=== PATIENT | male | born 1955 | race Caucasian/White ===

== ENCOUNTER → 2021-02-22 08:48 | Outpatient (REF) | payer BC, SELFPAY | LOC: ANHLAB 08:48 | PROVIDERS: PCP Family Medicine; Visit Provider Nurse Practitioner | DX: D23.39 Other benign neoplasm of skin of other parts of face (principal) | CPT/HCPCS: 88304; 88305 ==

== ENCOUNTER 2021-07-25 11:10 | Outpatient (CLI) | payer MEDICARE, SELFPAY ==
--- NOTE | ~2021-07-25 | US_ITS ---
US venous doppler [facility] DATE: 07/25/2021 12:07 INDICATION: Left lower extremity calf pain TECHNIQUE: Real-time and color flow imaging and Doppler analysis of the veins of the lower extremitie s COMPARISON: None FINDINGS: The greater saphenous veins are patent. There is spontaneous and phasic flow and normal aug mentation and color flow signal and normal compression of the deep veins of both lower extremities. There is mild fluid in the medial left calf. Differential diagnosis includes edema, hematoma, Stevenson's cyst or ruptured Stevenson's cyst IMPRESSION: No evidence of deep venous thrombosis of either lower extremity Fluid in the medial left calf; diffusion diagnosis includes edema, hematoma, Stevenson's cyst or ruptured Stevenson's cyst Reviewed, dictated and finalized at Location A. Reviewed, dictated and finalized at location B. IMPRESSION: No evidence of deep venous thrombosis of either lower extremity Fluid in the medial left calf; diffusion diagnosis includes edema, hematoma, Ba ker's cyst or ruptured Stevenson's cyst
== END 2021-07-25 11:11 | disposition home or self-care (01) ==
PROVIDERS: PCP Family Medicine; Visit Provider Physician Assistant Medical
DX: M79.605 Pain in left leg (principal); M79.89 Other specified soft tissue disorders
CPT/HCPCS: 93970

== ENCOUNTER 2022-08-08 13:39 | Outpatient (CLI) | payer MEDICARE, SELFPAY ==
--- NOTE | ~2022-08-08 | XR_ITS ---
XR sacrum coccyx min 2V 08/08/2022 14:14 Indication: Radiculopathy. Procedure: 3 views of the sacroiliac joints Comparison: No prior studies for comparison. Findings: There is disc narrowing at L3-4, L4-5 and L5-S1. There is advanced facet hypertrophy at the se levels. Sacroiliac joints are unremarkable bilaterally without significant degenerative change, er osion or ankylosis. There is mild osteoarthritis of the hips. No acute fracture or traumatic malalign ment. Impression: 1: No significant abnormality of the sacroiliac joints. Reviewed, dictated and finalized at location D. Impression: 1: No significant abnormality of the sacroiliac joints.
--- NOTE | ~2022-08-08 | XR_ITS ---
Lumbosacral Spine: AP and lateral views Clinical History: Pain Findings: The normal lordotic curve is maintained. No fracture identified. 5 mm retrolisthesis of L2 over L3 present, with severe degenerative disc narrowing at this level. There are mild degenerative d isc change at the remaining lumbar levels. There is moderate facet arthropathy throughout the lumbar spine. The sacroiliac joints are normally outlined. Impression: 5 mm retrolisthesis of L2 over L3, with severe degenerative disc narrowing at this level. Mild degenerative spondylosis in the remainder of the lumbar spine otherwise. Reviewed, dictated and finalized at location . Impression: 5 mm retrolisthesis of L2 over L3, with severe degenerative disc narrowing at t his level. Mild degenerative spondylosis in the remainder of the lumbar spine otherwise.
== END 2022-08-08 13:40 ==
PROVIDERS: PCP Family Medicine; Visit Provider Physician Assistant Medical
DX: M51.16 Intervertebral disc disorders with radiculopathy, lumbar region (principal); M47.26 Other spondylosis with radiculopathy, lumbar region
CPT/HCPCS: 72100; 72220

== ENCOUNTER 2024-08-05 14:04 | Outpatient (CLI) | payer OTHER, SELFPAY ==
--- OUTSIDE RECORDS SUMMARY | 2024-08-05 14:17 | XMS_ITS | Encounter Summary ---
Author Organization [facility] Address [address] [place], [place] [address] [address] Care Team Providers Care Bogger Operator Name Role Phone Jacques Monae MD Primary Care Provider [phone] Reason for Visit * Reason Onset Date Comments MEDICATION REFILL 03/22/2021 Encounter Details Date Type Department Care Team (Late st Contact Info) Description 03/22/2021 Refill [facility]ology, Diabetes and Metabolism [address] [place] [address], [facility] [place] [id number] Vasiliy Hidalgo MD [address] [place] [address] [place] [address] MEDICATION REFILL Social History Tobacco Use Types Packs/Day Years Used Date Smoking Tobacco: Never Smokeless Tobacco: Never Alcohol Use Standard Drinks/Week Comments No 0 (1 standard drink = 0.6 oz pur e alcohol) Sex and Gender Information Value Date Recorded Sex Assigned at Not on file Legal Sex Male 11:50 AM CDT Gender Identity Not on file Sexual Orientation Not on file documented as of this encounter Miscellaneous Notes * Telephone Encounter - Maryjo Hyman LPN - 03/23/2021 8:18 AM CST Refill Request Ye Gray ROSI: 01-24-21Jan due: 6 month NOV scheduled: 07/25/2021 LRF: 07-11-20 Qty Disp: 10 # of refills: 11 Allergies: Allergies Allergen Reactions ??? Penicillins Rash Pended Medication Order: Requested Prescriptions Pending Prescriptions Disp Refills ??? insulin detemir (LEVEMIR) pen Sig: Inject 80 (eighty) Units subcutaneously at bedtime INUOUS IMPROVEMENT FACILITATOR documented in this encounter Plan of Treatment Not on file documented as of this encounter Visit Diagnoses Diagnosis Type 2 diabetes mellitus with hyperglycemia, with long-term current use of insulin (HCC) documented in this encounter Care Teams Bogger Operator Relationship Specialty Start Date End Date Jacques Monae MD [address] [place] [address] PCP - General 11/05/17 documented as of this encounter
--- OUTSIDE RECORDS SUMMARY | 2024-08-05 14:17 | XMS_ITS | Encounter Summary ---
Author Organization [facility] Address [address] [facility] [place] [address] Care Team Providers Care Battery Checker Name Role Phone Jacques Monae MD Primary Care Provider Encounter Details Date Type Department Care Team (Late st Contact Info) Description 02/14/2022 Lab Requisition [facility] [address] [facility] [place] [id number] Jacques Monae MD [address] [place] [address] Social History Tobacco Use Types Packs/Day Years [...] on file documented as of this encounter Plan of Treatment Not on file documented as of this encounter Procedures Procedure Name Priority Date/Time Associated Diagnosis Comments DERMATOPATHOLOGY Routine 02/13/2022 12:0 0 AM FIRE BEHAVIOR ANALYST documented in this encounter Results * DERMATOPATHOLOGY (02/13/2022 12:00 AM FIRE BEHAVIOR ANALYST) Case Report Dermatopathology Report Case: [id number] Authorizing Provider: Jacques Monae MD Collected: 02/13/2022 12:00 AM Ordering Location: [facility] Received: 02/14/2022 12:48 PM Pathologist: Kalie Lucio MD Specimen: Skin, left chest 2 2:48 PM [facility] DER[facility]ORATORY Final Diagnosis Specimen A. SKIN, left chest: SEBORRHEIC KERATOSIS, IRRITATED AND INFLAMED (L82.0) PRESENT AT MARGIN 2 2:48 PM [facility] DERMATOPATHOLOGY LABORATORY at 1448 FIRE BEHAVIOR ANALYST Clinical History Changing Lesion. Check Margins. 2 2:48 PM [facility] DERMAT[facility]OR[facility]ORY Gross Description Specimen A: Received is one formalin filled container labeled with the patient's name and designated left chest. The specimen consists of a shave biopsy measuring 9x6x3 mm. Jar 0. 2:48 PM [facility] DERMATOPATHOLOGY [facility]ORATORY Microscopic Description Specimen A. SKIN, left chest: Sections show acanthosis, papillomatosis, hyperkeratosis, and squamous eddies. There is a lymphohistiocytic infiltrate within the papillary dermis. This lesion is present at the margin of the specimen. 2 2:48 PM [facility] DERMATOPATHOLOGY [facility]ORATORY Disclaimer An external and internal positive and negative controls are appropriate for the histochemical, immunohistochemical and immunofluorescence stain(s) in this case (if any), except where stated explicitly. The performance characteristics of the stain(s) cited in this report were developed and its performance characteristic determined by the Dermatopathology Laboratory at [facility], directed by Dr. Sari Padilla. These tests need not be, and therefore are not, approved by the [place] Food and Drug Administration. The tests are used for clinical purposes. Billing Codes Specimen Charges Stain Charges 41623 1 2 2:48 PM [facility] DERMATOPATHOLOGY [facility]ORATORY Embedded Images 2 2:48 PM [facility] DERMATOPATHOLOGY [facility]OR[facility]ORY Pathology/Cytolog y TISSUE SPECIMEN FROM SKIN / Unknown 02/13/2022 02/14/2022 12:48 PM [facility] us Jacquesenoc Monae MD LAB - PATHOLOGY/CYTOLOGY BRIDGETTE CHING Final Result DERMATOPATHOLOGY LABORATORY [facility] - Department of Dermatology [address] [place], [place] [id number] [place] [address] documented in this encounter Visit Diagnoses Not on filedocumented in this encounter Care Teams Battery Checker Relationship Specialty Start Date End Date Jacques Monae MD [address] [place] [address] PCP - General 11/05/17 documented as of this encounter
--- OUTSIDE RECORDS SUMMARY | 2024-08-05 14:17 | XMS_ITS | Encounter Summary ---
Author Organization [facility] Address [address] [place] [address] Care Team Providers Care Major Gifts Director Name Role Phone Jacques Monae MD Primary Care Provider Reason for Visit * Reason Onset Date Comments MEDICATION REFILL 09/09/2018 Encounter Details Date Type Department Care Team (Late st Contact Info) Description 09/09/2018 Refill [facility] Endocrinology, Diabetes and Metabolism [address] [place] [address] Vasiliy Hidalgo MD [address] [place] [address] MEDICATION REFILL Social History Tobacco Use Types [...] as of this encounter Visit Diagnoses Diagnosis Uncontrolled type 2 diabetes mellitus without complication, without long-term current use of insulin documented in this encounter Care Teams Major Gifts Director Relationship Specialty Start Date End Date Jacques Monae MD [address] [place] [phone] PCP - General 11/05/17 documented as of this encounter
--- OUTSIDE RECORDS SUMMARY | 2024-08-05 14:17 | XMS_ITS | Encounter Summary ---
Author Organization [facility] Address [address] [place] [address] Care Team Providers Care Fertilizer Supervisor Name Role Phone Jacques Monae MD Primary Care Provider [phone] Encounter Details Date Type Department Care Team (Late st Contact Info) Description 07/05/2017 Lab Requisition [facility] [address] [facility] [place] [address] Alireza Stout MD [address] [place] [address] Social History Tobacco Use Types Packs/Day Years Used Date Smoking Tobacco: Never Assessed Sex and Gender Information Value Date Recorded Sex Assigned at Not on file Legal Sex Male 11:50 AM CDT Gender Identity Not on file Sexual Orientation Not on file documented as of this encounter Plan of Treatment Not on file documented as of this encounter Procedures Procedure Name Priority Date/Time Associated Diagnosis Comments DERMATOPATHOLOGY Routine 07/04/2017 12:0 0 AM CDT documented in this encounter Results * DERMATOPATHOLOGY (07/04/2017 12:00 AM CDT) Case Report Dermatopathology Report Case: [id number] Authorizing Provider: Alireza Stout MD Collected: 07/04/2017 12:00 AM Pathologist: Maryellen Sevilla MD Received: 07/05/2017 12:22 PM Specimen: Skin, right lower ariana lip 8 3:22 PM CDT DERMATOPATHOLOGY LABORATORY Final Diagnosis Specimen A. SKIN, right lower ariana lip: MUCOSAL LENTIGO (LABIAL MELANOTIC MACULE) (L81.8) PRESENT AT MARGIN 3:22 PM CDT DERMATOPATHOLOGY LABORATORY at 1522 CDT Clinical History R/O solidarity labial macule. Check margins. 3:22 PM CDT DERMATOPATHOLOGY LABORATORY Gross Description Specimen A: Received is one formalin filled container labeled with the patient's name and designated right lower ariana lip. The specimen consists of a punch biopsy measuring [id number], the margin is inked green, bisected. Jar 0. 3:22 PM CDT DERMATOPATHOLOGY LABORATORY Microscopic Description Specimen A. SKIN, right lower ariana lip: The specimen is taken from a mucocutaneous surface and shows acanthosis and prominent pigmentation in the basal layer. The keratinocytes are mature and there is a minimal increase in melanocytes. This lesion is present at the margin of the specimen. 3:22 PM CDT DERMATOPATHOLOGY LABORATORY Disclaimer An external and internal positive and negative controls are appropriate for the histochemical, immunohistochemical and immunofluorescence stain(s) in this case (if any), except where stated explicitly. The performance characteristics of the stain(s) cited in this report were developed and its performance characteristic determined by the Dermatopathology Laboratory at [facility]. These tests need not be, and therefore are not, approved by the [place] Food and Drug Administration. The tests are used for clinical purposes. Billing Codes Specimen Charges Stain Charges 44101 1 3:22 PM CDT DERMATOPATHOLOGY LABORATORY Embedded Images 3:22 PM CDT DERMATOPATHOLOGY LABORATORY Pathology/Cytolog y TISSUE SPECIMEN FROM SKIN / Unknown 07/04/2017 07/05/2017 12:22 PM CDT us Alireza Stout MD LAB - PATHOLOGY/CYTOLOGY ORD ERABLES Final Result DERMATOPATHOLOGY LABORATORY [facility] - Department of Dermatology [address] [place] [address], [address] [place] [address], [facility] [phone] documented in this encounter Visit Diagnoses Not on filedocumented in this encounter Care Teams Fertilizer Supervisor Relationship Specialty Start Date End Date Jacques Monae MD [address] [place] [address] PCP - General 11/05/17 documented as of this encounter
--- OUTSIDE RECORDS SUMMARY | 2024-08-05 14:17 | XMS_ITS | Continuity of Care Document ---
Author Organization [facility] Address [address] [place] [address] [facility] [address] [place] [address] Phone Care Team Providers Care District Sales Coordinator Name Role Phone Pantera Quiñones Unavailable Unavailable Procedures Procedure Date Office/outpatient Visit, [facility] Advance Directives Directive Yes / No Effective Date File Name No Information Encounters Encounter Description Practice Location Reason(s) For Visit Diagnoses Date Provider Providers Copied on Encounter Office/outpat ient Visit, [facility] [place] [address] [facility] [address], [place], [place], [id number], [place] tel:[phone] [facility] No Information [address] [facility] [address], [address], [place]. tel:[phone] Family History Family Member Type Diagnosis Age At Onset No Information Payers Payer name Insurance type Covered republican ID Authoriza tion(s) No Information Social History Type Description Quantity Date Captured Comments Sex Male Smoking Status No Information Chief Complaint And Reason For Visit No Information Reason For Referral Reason For Referral No Information History Of Present Illness Encounter Date Complaint History Of Prese nt Illness No Information Functional Status Date Functional Assessmen t No Information Instructions Date Instruction Additional Infor mation No Information Assessments Type Assessment Date No Information Patient Care Teams Name Effective Dates (start - stop) Status Members No Information
--- OUTSIDE RECORDS SUMMARY | 2024-08-05 14:17 | XMS_ITS | Clinical Summary ---
Author Organization [facility] Address [address] [place] [address] Care Team Providers Care Engineering Faculty Name Role Phone Jacques Monae MD Primary Care Provider [phone] Source Comments [facility],non-owned Affiliates and Associated Physician Practices is amultiple site organization consisting of ambulatory clinics and hospital sitesin [place] and [place]. This disclosure is being madepursuant to the Care Everywhere program and may not contain all information available regarding this patient. Last updated 17.[facility] Allergies Active Allergy Reactions Criticality Noted Date Comments Penicillins Rash Medium 11/13/2017 Medications * Be aware that medications may not be up to date on this document. Alwaysverify current medications with the patient. doxepin (SINEQUAN) 25 MG capsule Take 25 mg by mouth once daily 0 10/15/19 18 Active lisinopril-hydroCH LOROthiazide (PRINZIDE; ZESTORETIC) 20-12.5 MG tabletIndications: Hypertension, unspecified type 1 tablet once daily 0 11/20/19 18 Active vitamin C (ASCORBIC ACID) 1000 MG tabletIndications: Class 2 obesity due to excess calories without serious comorbidity with body mass index (BMI) of 35.0 to 35.9 in adult Take 1 tablet by mouth once daily 11/20/19 18 Active ONETOUCH ULTRA TEST STRIPS test stripIndications:U ncontrolled type 2 diabetes mellitus without complication, without long-term current use of insulin Use 1 strip once daily 100 strip 11 06/13/19 19 Active Multiple Vitamin (MULTI-VITAMIN DAILY PO) Active ALPRAZolam (XANAX) 0.5 MG tablet Take 0.5 mg by mouth once daily as needed 02/29/20 20 Active busPIRone (BUSPAR) 7.5 MG tablet Take 7.5 mg by mouth 2 times daily 06/29/19 21 Active fluticasone propionate (FLONASE) 50 MCG/ACT nasal spray 1 spray once daily 06/14/19 21 Active cyclobenzaprine (FLEXERIL) 10 MG tablet Take 10 mg by mouth 3 times daily as needed FOR MUSCLE SPASM 11/05/19 21 Active empagliflozin (JARDIANCE) 10 MG tablet Take 1 (one) tablet by mouth once daily 90 tablet 11 07/11/19 22 Active atorvastatin (LIPITOR) 80 MG tabletIndications: Type 2 diabetes mellitus with hyperglycemia, with long-term current use of insulin ([facility]),Mixed hyperlipidemia Take 1 (one) tablet by mouth once daily 90 tablet 11 07/26/19 22 Active metFORMIN ER 24hr (GLUCOPHAGE XR) 500 MG tabletIndications: Type 2 diabetes mellitus with hyperglycemia, with long-term current use of insulin ([facility]) Take 1 (one) tablet by mouth every evening 180 tablet 07/26/19 22 Active VICTOZA 18 MG/3ML penIndications:Typ e 2 diabetes mellitus with hyperglycemia, with long-term current use of insulin ([facility]) Inject 1.8 mg subcutaneously once daily 9 mL 07/26/19 22 Active Insulin Glargine, 1 Unit Dial, (TOUJEO) penIndications:Typ e 2 diabetes mellitus with hyperglycemia, with long-term current use of insulin ([facility]) Sample given x2. Lot# [id number] EXP:03/17/22 09/28/19 22 Active insulin detemir (Levemir FlexPen) penIndications:Typ e 2 diabetes mellitus with hyperglycemia, with long-term current use of insulin ([facility]) Inject 80 (eighty) Units subcutaneously at bedtime 15 mL 06/02/19 23 Active Active Problems Problem Noted Date Diagnosed Date Kyphosis of thoracolumbar region 11/16/2017 Obesity (BMI 30-39.9) HTN (hypertension) HLD (hyperlipidemia) Type 2 diabetes mellitus wit h hyperglycemia, with long-term current use of insulin Chronic back pain Resolved Problems Problem Noted Date Diagnosed Date Resolved Date Uncontrolled type 2 diabetes mellitus without complication, without long-term current use of insulin 11/16/2017 07/11/2020 Class 1 obesity due to exces s calories with serious comorbidity and body mass index (BMI) of 32.0 to 32.9 in adult 11/16/2017 01/24/2021 Family History Medical History Relation Name Comments CAD (Coronary Artery Disease) Brother Thyroid Disease Daughter Diabetes - Type 2 Maternal Aunt Diabetes - Type 2 Maternal Grandmother Thyroid Disease Sister Relation Name Status Comments Brother Daughter Maternal Aunt Maternal Grandmother Sister Social History Tobacco Use Types Packs/Day Years Used Date Smoking Tobacco: Never Smokeless Tobacco: Never Tobacco Cessation:Counseling Given: No Alcohol Use Standard Drinks/Week Comments No 0 (1 standard drink = 0.6 oz pur e alcohol) Sex and Gender Information Value Date Recorded Sex Assigned at Not on file Legal Sex Male 11:50 AM CDT Gender Identity Not on file Sexual Orientation Not on file Last Filed Vital Signs Vital Sign Reading Time Taken Comments Blood Pressure 130/74 03/09/2019 3:47 PM ENGINE ASSEMBLY SUPERVISOR Pulse 98 03/09/2019 3:47 PM ENGINE ASSEMBLY SUPERVISOR Temperature 36.5 C (97.7 F) 03/09/2019 3:47 PM ENGINE ASSEMBLY SUPERVISOR Respiratory Rate 18 11/13/2017 12:59 PM CDT Oxygen Saturation 94% 03/09/2019 3:47 PM ENGINE ASSEMBLY SUPERVISOR Inhaled Oxygen Concentration - - Weight 112.9 kg (249 lb) 07/25/2021 1:01 PM CDT Height 188 cm (6' 2 ) 07/25/2021 1:01 PM CDT Body Mass Index 31.97 07/25/2021 1:01 PM CDT Plan of Treatment Health Maintenance Due Date Last Done Comments COLOGUARD (AGES 45-75) - COLON CA SCREENING 1956 COLON MONITORING 1956 COLONOSCOPY - COLON CA SCREENING 1956 CT COLONOGRAPHY - COLON CA SCREENING 1955 Colorectal Cancer Screening 1956 FIT - COLON CA SCREENING 1956 FLEX SIG - COLON CA SCREENING 1955 HEPATITIS C SCREENING 06/19/1974 DTAP/TDAP/TD VACCINES (1 - Tdap) 06/24/1975 PNEUMOCOCCAL VACCINE 50+ (1 of 2 - PCV) 06/24/1975 ZOSTER VACCINE (1 of 2) 2006 Respiratory Syncytial Virus (RSV) Vaccine Pt: or over 60 yrs (1 - Risk 60-74 years 1-dose series) 2016 DIABETES-FOOT EXAM WITH MONOFILAMENT 03/09/2020 03/09/2019, 11/19/2017, 11/19/2017 DIABETES RETINOPATHY SCREENING 05/16/2020 05/16/2018 DIABETES-HGB A1C 08/18/2021 02/17/2021, 05/2020, 09/22/2020, Additional history exists DIABETES-SERUM CREATININE 09/22/2021 09/22/2020, COVID-19 VACCINE ( season) 2023 DEPRESSION SCREENING 03/18/2024 DIABETES - URINE PROTEIN SCREENING 03/18/2024 09/22/2020, 07/09/2018, 11/30/2017 INFLUENZA VACCINE (Season Ended) 2024 HEPATITIS B VACCINE Aged Out No longe r eligible based on patient's age to complete this topic HIB VACCINE Aged Out No longer eligi ble based on patient's age to complete this topic HPV VACCINE Aged Out No longer eligi ble based on patient's age to complete this topic MENINGOCOCCAL (Group B) VACCINE SHARED DECISION-MAKING Aged Out No longer eligible based on patient's age to complete this topic MENINGOCOCCAL GROUPS A/C/Y/W VACCINE Aged Out No longer eligible based on patient's age to complete this topic Procedures Procedure Name Priority Date/Time Associated Diagnosis Comments HEMOGLOBIN A1C (EXTERNAL RESULT ENTRY) Routine 02/17/2021 Type 2 diabetes mellitus with hyperglycemia, with long-term current use of insulin MICROALB/CREAT RATIO URINE RANDOM PANEL 09/22/2020 6:32 AM CDT COMPREHENSIVE METABOLIC PANEL 09/22/2020 6:32 AM CDT EYE EXAM 05/16/2018 8:23 AM ENGINE ASSEMBLY SUPERVISOR from Last 3 Months or Most Recently Relevant to Health Maintenance Results * HEMOGLOBIN A1C (EXTERNAL RESULT ENTRY) (02/17/2021) Hemoglobin A1c (EXTERNAL RESULT) 8.6 % OUTSIDE REFERENCE LAB Blood BLOOD SPECIMEN / Unknown 02/17/2021 Vasiliy Hidalgo MD LAB - CHEMISTRY ORDERABLES Fin al Result OUTSIDE REFERENCE LAB * MICROALB/CREAT RATIO URINE RANDOM PANEL (09/22/2020 6:32 AM CDT) Creatinine Urine 61 20 - 320 mg/dL [facility] Microalbumin Urine 0.2 mg/dL [facility] Comment: Reference Range Not established Microalbumin/Creat inine Ratio 3 <30 mcg/mg creat [facility] Comment: The ADA defines abnormalities in albumin excretion as follows: Category Result (mcg/mg creatinine) Normal <30 Microalbuminuria 30-299 Clinical albuminuria > OR = 300 The ADA recommends that at least two of three specimens collected within a 3-6 month period be abnormal before considering a patient to be within a diagnostic category. Test Performed at: [facility] [id number] [place] [address] GLENNA FRYE DO,MPH 09/22/2020 6:32 AM CDT 09/22/2020 6:35 AM CDT Vasiliy Hidalgo MD LAB - URINE CHEMISTRY ORDERABL ES Final Result Performing Organization Address [facility] Co de Phone Number [facility] [phone] [place] [address] * (ABNORMAL) COMPREHENSIVE METABOLIC PANEL (09/22/2020 6:32 AM CDT) Glucose 179(H) 65 - 99 mg/dL [facility] Comment: Fasting reference interval For someone without known diabetes, a glucose value >125 mg/dL indicates that they may have diabetes and this should be confirmed with a follow-up test. BUN 18 7 - 25 mg/dL [facility] Creatinine 1.14 0.70 - 1.25 mg/dL [facility] Comment: For patients >49 years of age, the reference limit for Creatinine is approximately 13% higher for people identified as -Malagasy. eGFR by MDRD 68 > OR = 60 mL/min/1 .73m2 [facility] eGFR by MDRD 78 > OR = 60 mL/min/1 .73m2 [facility] BUN/Creatinine Ratio NOT APPLICABLE 6 - (calc) [facility] Sodium 142 135 - 146 mmol/L [facility] Potassium 3.7 3.5 - 5.3 mmol/L [facility] Chloride 104 98 - 110 mmol/L [facility] CO2 27 20 - 32 mmol/L [facility] Calcium 8.9 8.6 - 10.3 mg/dL [facility] Protein Total 6.3 6.1 - 8.1 g/dL [facility] Albumin 4.3 3.6 - 5.1 g/dL [facility] Globulin Total 2.0 1.9 - 3.7 g/dL (calc) [facility] Albumin/Globulin Ratio 2.2 1.0 - 2.5 (calc) [facility] Bilirubin Total 0.9 0.2 - 1.2 mg/dL [facility] Alkaline Phosphatase 79 35 - 144 U/L [facility] AST 15 10 - 35 U/L [facility] ALT 25 9 - 46 U/L [facility] Comment: Test Performed at: [facility] [address] [place] [address] GLENNA FRYE DO,MPH 09/22/2020 6:32 AM CDT 09/22/2020 6:35 AM CDT us Vasiliy Hidalgo MD LAB - CHEMISTRY ORDERABLES Fin al Result [facility] [address] [place] [address] * EYE EXAM (05/16/2018 8:23 AM ENGINE ASSEMBLY SUPERVISOR) Anatomical Region Laterality Modality Other Narrative 05/16/2018 8:23 AM ENGINE ASSEMBLY SUPERVISOR Ordered by an unspecified provider. us Scanned Document SCANNING ONLY Final Result from Last 3 Months or Most Recently Relevant to Health [place] [address] [facility] MANAGED MEDICARE ADV Care Teams Engineering Faculty Relationship Specialty Start Date End Date Jacques Monae MD [address] [place] [address] PCP - General 11/05/17
[2024-08-05 19:42] LABS: Prostate Specific Antigen 1.5 ng/mL (< OR = 4.0)
== END 2024-08-05 14:05 | disposition home or self-care (01) ==
LOC: ANHLAB 14:06
PROVIDERS: PCP Family Medicine; Visit Provider Physician Assistant Medical
DX: R35.0 Frequency of micturition (principal); R35.1 Nocturia; Z12.5 Encounter for screening for malignant neoplasm of prostate
CPT/HCPCS: 36415; 84153; G0103